=== PATIENT | female | born 1980 | race Caucasian/White ===

== ENCOUNTER 2016-08-02 13:50 | Emergency (ER) | payer OTHER ==
[~2016-08-02 13:50] MED LIST: ALBUTEROL SULF8.5 GM INH; ALDACTONE100 MG PO; CELEXA40 MG PO; CLARITIN10 M2 PO; CLINDAMYCIN HC300 MG PO; CYCLOBENZAPRINE10 MG PO; CYMBALTA20 MG PO; DICLOFENAC; DICLOFENAC SODI50 MG PO; GABAPENTIN300 MG PO; KEFLEX500 MG PO; LEVOFLOXACIN750 MG PO; METFORMIN HCL500 MG PO; NIACIN500 M1 PO; NORCO 5-325 TA1 EACH PO; NORCO 7.5-3251 EACH PO; OS CAL PO; PREVIFEM1 EACH PO; SPIRONOLACTONE50 MG PO; TRAMADOL HCL50 MG PO; TRAZODONE HCL50 MG PO; VITAMIN D1000 UNI1 PO; ZITHROMAX250 MG PO; [UNRECOGNIZED DRUG - OTHER] PO
--- OUTSIDE RECORDS SUMMARY | 2016-08-02 14:16 | XMS ---
Demographics + + + | Address | [address] | | | [address] | | | [place] [address] | + + + | Preferred Language | Unknown | + + + | Marital Status | Unknown | + + + | Latter-Day Affiliation | Unknown | + + + | Race | Unknown | + + + | Ethnic Group | Unknown | + + + Author + + + | Author | [facility] | + + + | Organization | [facility] | + + + | Address | [address] | | | [place] [address] | + + + | Phone | | + + + Care Team Providers + + + + | Care Scrap Breaker Name | Role | Phone | + + + + Unavailable | Unavailable | + + + + PROBLEMS +---------+ + + +--------+ + + | Type | Condition | ICD9-CM | JSO19-RA | Onset | Condition | SNOMED | | | | Code | Code | Dates | Status | Code | +---------+ + + +--------+ + + | Problem | Hirsutism | | L68.0 | | Active | 192637703 | +---------+ + + +--------+ + + | Problem | Hypertensi | | I10 | | Active | 90639083 | | | on | | | | | | +---------+ + + +--------+ + + | Problem | Asthma | | J45.909 | | Active | 533864826 | +---------+ + + +--------+ + + | Problem | Snoring | | R06.83 | | Active | 49636039 | +---------+ + + +--------+ + + | Problem | BMI | Z68.38 | | | Active | 2202731394 | | | 38.0-38.9, | | | | | [address] | | | adult | | | | | | +---------+ + + +--------+ + + | Problem | Tobacco | | Z72.0 | | Active | 01203715 | | | abuse | | | | | | +---------+ + + +--------+ + + | Problem | Tobacco | | Z71.6 | | Active | 423067465 | | | abuse | | | | | | | | counseling | | | | | | +---------+ + + +--------+ + + | Problem | Anxiety | F41.8 | | | Active | 747957025 | | | associated | | | | | | | | with | | | | | | | | depression | | | | | | +---------+ + + +--------+ + + | Problem | Carpal | G56.00 | | | Active | 40387673 | | | tunnel | | | | | | | | syndrome | | | | | | +---------+ + + +--------+ + + | Problem | Tobacco | 305.1 | | | Active | 29210490 | | | abuse | | | | | | | | disorder | | | | | | +---------+ + + +--------+ + + | Problem | Chronic | 724.4 | | | Active | 538657694 | | | radicular | | | | | | | | pain of | | | | | | | | lower back | | | | | | +---------+ + + +--------+ + + | Problem | Family | V18.19 | | | Active | 065828095 | | | history of | | | | | | | | thyroid | | | | | | | | problem | | | | | | +---------+ + + +--------+ + + | Problem | Insomnia | | G47.00 | | Active | 584779735 | +---------+ + + +--------+ + + | Problem | GERD | | K21.9 | | Active | 008929110 | | | (gastroeso | | | | | | | | phageal | | | | | | | | reflux | | | | | | | | disease) | | | | | | +---------+ + + +--------+ + + | Problem | Steatosis | 571.8 | | | Active | 804791710 | | | of liver | | | | | | +---------+ + + +--------+ + + | Problem | Hyperlipid | | E78.5 | | Active | 89714739 | | | emia | | | | | | +---------+ + + +--------+ + + | Problem | Obesity | | E66.01 | | Active | 902918777 | | | (BMI | | | | | | | | 35.0-39.9 | | | | | | | | without | | | | | | | | comorbidit | | | | | | | | y) | | | | | | +---------+ + + +--------+ + + | Problem | PCOS | E28.2 | | | Active | 91973918 | | | (polycysti | | | | | | | | c ovarian | | | | | | | | syndrome) | | | | | | +---------+ + + +--------+ + + ALLERGIES + + + + +--------+ | Substance | Reaction | Event Type | Date | Status | + + + + +--------+ | Penicillin | hives | Drug Allergy | Jul, | Active | + + + + +--------+ | Sulfa | nausea | Drug Allergy | Jul, | Active | + + + + +--------+ SOCIAL HISTORY No smoking Hx information available PLAN OF CARE + +---------+ | Activity | Details | + +---------+ +---+ | | +---+ + + + | Follow Up | prn Reason:null | + + + | Future/Pending Procedure | punch biopsy | + + + VITAL SIGNS + + + + | Height | 64 in | 2016-07-28 | + + + + | Weight | 222.0 lbs | 2016-07-28 | + + + + | BMI | 38.10 kg/m2 | 2016-07-28 | + + + + | Temperature | 97.3 degrees Fahrenheit | 2016-07-28 | + + + + | Heart Rate | 94 /min | 2016-07-28 | + + + + | Blood pressure systolic | 132 mm Hg | 2016-07-28 | + + + + | Blood pressure diastolic | 87 mm Hg | 2016-07-28 | + + + + MEDICATIONS + + + + + + + +--------+ | Medicati | Instruct | Dosage | Frequenc | Start | End Date | Duration | Status | | on | ions | | y | Date | | | | + + + + + + + +--------+ | Fish Oil | Orally | 1 | 24h | | | | Active | | | Once a | capsule | | | | | | | | day | with a | | | | | | | | | meal | | | | | | + + + + + + + +--------+ | Spironol | | TAKE ONE | | | | 30 | Active | | actone | | TABLET | | | | | | | 25 MG | | BY MOUTH | | | | | | | | | TWICE A | | | | | | | | | DAY | | | | | | + + + + + + + +--------+ | Diclofen | orally 1 | 1 tab(s) | | | 13 Dec, | 30 | Active | | ac | to 2 | | | | 2017 | day(s) | | | Sodium | times a | | | | | | | | 75 mg | day | | | | | | | + + + + + + + +--------+ | Singulai | Orally | 1 tablet | 24h | | | 30 | Active | | r 10 MG | Once a | in the | | | | | | | | day | evening | | | | | | + + + + + + + +--------+ | Albutero | | USE 1 | | | | 5 | Active | | l | | VIAL PER | | | | | | | Sulfate | | | | | | | | | (2.5 | | NEBULIZE | | | | | | | MG/3ML) | | R EVERY | | | | | | | 0.083% | | 4 HOURS | | | | | | | | | | | | | | | | | | NEEDED | | | | | | + + + + + + + +--------+ | Flexeril | Orally | 1 tablet | | | | 30 | Active | | 10 mg | qhs | | | | | | | + + + + + + + +--------+ | Cymbalta | Orally | 1 | 24h | | | 30 | Active | | 60 MG | Once a | capsule | | | | | | | | day | | | | | | | + + + + + + + +--------+ | Tramadol | Orally | 1 tablet | 6h | | | | Active | | HCl 50 | every 6 | as | | | | | | | MG | hrs | needed | | | | | | + + + + + + + +--------+ | Ventolin | Inhalati | 2 puffs | | | | 30 | Active | | HFA 108 | on every | as | | | | | | | (90 | 4 hrs | needed | | | | | | | Base) | prn | | | | | | | | MCG/ACT | SOB/Whee | | | | | | | | | ze/Cough | | | | | | | + + + + + + + +--------+ | Metformi | Orally | 1 tab(s) | 12h | | | 30 days | Active | | n HCl | bid | | | | | | | | 500 mg | | | | | | | | + + + + + + + +--------+ | Xanax | Orally | 1 tablet | | 16 Sep, | | 15 | Active | | 0.25 MG | BID PRN | | | 2015 | | day(s) | | | | anxiety | | | | | | | | | attack | | | | | | | + + + + + + + +--------+ | Niacin | Orally | 1 tablet | 24h | | | | Active | | | Once a | | | | | | | | | day | | | | | | | + + + + + + + +--------+ | Trazodon | | TAKE ONE | | | | 30 | Active | | e HCl | | CAPSULE | | | | | | | 100 MG | | EVERY | | | | | | | | | BEDTIME | | | | | | | | | FOR | | | | | | | | | INSOMNIA | | | | | | + + + + + + + +--------+ | Acyclovi | Orally 5 | 2 | | 17 Nov, | | 7 days | Active | | r 400 MG | times a | tablets | | 2013 | | | | | | day | | | | | | | + + + + + + + +--------+ | Gabapent | Orally | 1 cap(s) | | June, | | 30 | Active | | in 300 | qHS | | | 2016 | | | | | mg | | | | | | | | + + + + + + + +--------+ RESULTS No Results PROCEDURES + + + + + | Procedure | Date Ordered | Related Diagnosis | Body Site | + + + + + | BIOPSY OF SKIN | July 28, 2016 | | | | LESION; Single | | | | + + + + + | Est Level II | July 28, 2016 | | | | Limited | | | | + + + + + | DOC MEDS VERIFIED | July 28, 2016 | | | | W/PT OR RE | | | | + + + + + | [facility] MED/CURRENT | July 28, 2016 | | | | MED MERGE | | | | + + + + + IMMUNIZATIONS No Known Immunizations"
--- NOTE | 2016-08-02 15:57 | EKG ---
[facility] [address] [place], [place] [address] Signed Normal sinus rhythm Normal ECG When compared with ECG of 24-MAR-2016 11:13, No significant change was found Confirmed by CLIVE ERAZO MD ([id number]) on 08/02/2016 3:57:08 PM Electronically Signed By: CLIVE ERAZO MD 08/02/16 1557 PATIENT NAME: ESTHER WEINSTEIN Electrocardiogram DATE OF : 76 PHYSICIAN: CLIVE ERAZO MD REPORT #: [id number] REPORT IS CONFIDENTIAL AND NOT TO BE RELEASED WITHOUT AUTHORIZATION
== END 2016-08-02 15:58 | disposition home or self-care (01) ==
LOC: ED 13:50
DX: I49.3 Ventricular premature depolarization (principal); F17.200 Nicotine dependence, unspecified, uncomplicated; Z90.710 Acquired absence of both cervix and uterus; Z90.89 Acquired absence of other organs; Z88.0 Allergy status to penicillin; Z88.2 Allergy status to sulfonamides; Z79.899 Other long term (current) drug therapy
CPT/HCPCS: 80053; 83735; 84443; 84484; 85025; 93005; 93010; 99284

== ENCOUNTER 2016-11-14 09:00 | Day surgery (SDC) | payer OTHER ==
[~2016-11-14] VITALS: Ht 162.6 cm; Wt 98.0 kg
[2016-11-14] MEDS ORDERED: KEFLEX500 MG PO (09:31)
[2016-11-14] MEDS ORDERED: SINGULAIR10 MG PO (09:31)
--- NOTE | 2016-11-14 11:46 | NUR ---
11/14/16 1146 Won Purdy PT RATES HER PAIN AT A 7. MEDICATED BY REFRIGERATION ENGINE OPERATOR.
--- NOTE | 2016-11-14 12:40 | NUR ---
ICED WATER AND PUDDING GIVEN. CALL LIGHT W/IN REACH.
--- NOTE | 2016-11-14 12:49 | NUR ---
PT EATS PUDDING AND TOLERATES THAT WELL.
[2016-11-14] MEDS ORDERED: OXYCODONE HCL5 MG PO (13:25)
--- NOTE | 2016-11-14 13:29 | NUR ---
PT UP TO BR W/RN STANDBY. PT AMBULATES WELL AND DENIES DIZZINESS. PT REPORTS SUCCESSFUL VOID. PT REQ DC HOME. DC INSTRUCTIONS GIVEN IN PRESENCE OF SPOUSE AND BOTH VERBALIZE UNDERSTANDING.
--- NOTE | 2016-12-05 15:10 | OR ---
[facility] [address] [place], [place] [address] Signed DATE OF PROCEDURE: 11/14/16 PREOPERATIVE DIAGNOSES: Chronic pansinusitis with a septal deformity. POSTOPERATIVE DIAGNOSES: Chronic pansinusitis with a septal deformity. PROCEDURE PERFORMED: Bilateral pansinusotomies with a septoplasty. SURGEON: Aguila Oleary MD. ANESTHESIA: General LMA, (Jennifer Crouch CRNA). PREOPERATIVE HISTORY Karla is a 36-year-old lady with several months of sinus infections. She has an abnormal sinus CT despite several courses of antibiotics. She has a significant septal deformity obstructive on the right side. She is taken to the operating room for the above-mentioned procedures. OPERATIVE PROCEDURE AND FINDINGS After informed consent, the patient was taken to the operating room, placed in supine position where general LMA anesthesia was induced. The patient and procedure were verified. The patient received preoperative intranasal oxymetazoline and intravenous Ancef. The preop CT was viewed throughout, headlight nasal speculum exam of the nasal cavity showed a significant septal deformity on the right side, a large spur extending posteriorly, which was obstructive and also obscuring excess to the middle meatus. Septal mucosa was injected with 1% Lidocaine with Epi. The septal mucosa was elevated off the deviated septal bone and cartilage, which was excised with Jason. Septum was medialized and the airway improved and access to middle meatus was available after this. The left side was approached, middle turbinate was medialized. The ethmoid bulla was taken down with the Jason. There was edematous mucosa. All the anterior and posterior ethmoid air cells were then opened. The sphenoid sinus was opened and sphenoid sinusotomy widened. There was some hypertrophic mucosa present in the sphenoid sinus. All involved sinuses were opened as per CT, middle meatal antrostomy was made with a curving curette and widened with the Jason. Bleeding was minimal. Packing was placed. coated with Neosporin in the middle meatus and the trimmed Merocel pack in the nasal cavity. The same procedure on the right side. Actually a bit more hypertrophic mucosa polypoid material in the ethmoid sinuses on the right side. The sinuses were open as per the left side. Packing was placed. The packing was tied anteriorly over a pad. Hemostasis was verified. The pharynx was suctioned clear blood and secretions. The patient was then awakened, extubated, transported to recovery room in good condition. No complications. Electronically Signed By: AGUILA OLEARY MD 12/05/16 1510 PATIENT NAME: KARLA WEINSTEIN OPERATIVE REPORT DATE OF : 76 PHYSICIAN: AGUILA OLEARY MD REPORT #: [id number] REPORT IS CONFIDENTIAL AND NOT TO BE RELEASED WITHOUT AUTHORIZATION [address] [address] Signed BLOOD LOSS: Around 200 mL. SPECIMEN TO PATHOLOGY Packing 2 pieces of Merocel each nostril. No drains. No complications. Aguila Oleary MD GC/Lyle /[id number] cc: NILESH Vazquez Electronically Signed By: AGUILA OLEARY MD 12/05/16 1510 PATIENT NAME: WEINSTEINKARLA OPERATIVE REPORT DATE OF : 76 PHYSICIAN: AGUILA OLEARY MD REPORT #: [id number] REPORT IS CONFIDENTIAL AND NOT TO BE RELEASED WITHOUT AUTHORIZATION
== END 2016-11-14 13:43 | disposition home or self-care (01) ==
LOC: DS 09:00
PROVIDERS: Otolaryngology
PROC: 099Q4ZZ Drainage of Right Maxillary Sinus, Percutaneous Endoscopic Approach (ICD-10-PCS; 2016-11-14)
PROC: 099U4ZZ Drainage of Right Ethmoid Sinus, Percutaneous Endoscopic Approach (ICD-10-PCS; 2016-11-14)
PROC: 099V4ZZ Drainage of Left Ethmoid Sinus, Percutaneous Endoscopic Approach (ICD-10-PCS; 2016-11-14)
PROC: 099X4ZZ Drainage of Left Sphenoid Sinus, Percutaneous Endoscopic Approach (ICD-10-PCS; 2016-11-14)
PROC: 099W4ZZ Drainage of Right Sphenoid Sinus, Percutaneous Endoscopic Approach (ICD-10-PCS; 2016-11-14)
PROC: 09SM0ZZ Reposition Nasal Septum, Open Approach (ICD-10-PCS; 2016-11-14)
PROC: 099R4ZZ Drainage of Left Maxillary Sinus, Percutaneous Endoscopic Approach (ICD-10-PCS; principal; 2016-11-14 11:00)
DX: J32.4 Chronic pansinusitis (principal); J34.2 Deviated nasal septum; E78.00 Pure hypercholesterolemia, unspecified; F32.9 Major depressive disorder, single episode, unspecified; J45.909 Unspecified asthma, uncomplicated; E28.2 Polycystic ovarian syndrome; G43.909 Migraine, unspecified, not intractable, without status migrainosus; Z88.0 Allergy status to penicillin; Z88.2 Allergy status to sulfonamides; Z79.01 Long term (current) use of anticoagulants; Z79.899 Other long term (current) drug therapy; Z90.710 Acquired absence of both cervix and uterus; Z98.890 Other specified postprocedural states
CPT/HCPCS: 00160; J0690; J1100; J2250; J2405; J2704; J2765; J3010; J7120

== ENCOUNTER 2019-04-28 20:49 | Emergency (ER) | payer OTHER ==
[~2019-04-28] VITALS: Ht 162.6 cm; Wt 92.1 kg
[~2019-04-28 20:49] MED LIST changes: +ACYCLOVIR400 MG PO; +FISH OIL 1,0001 EAC2 NG; +GABAPENTIN100 MG; +OXYCODONE HCL5 MG PO; +SINGULAIR10 MG PO; +SPACE CHAMBER1 EACH; +TRIAMCINOLONE A15 GM TOP; +VENTOLIN HFA18 GM INH; +XANAX0.25 MG PO
--- OUTSIDE RECORDS SUMMARY | 2019-04-28 20:52 | XMS ---
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 Anastasiya has no Care Guidelines for this patient. Grace VISIT COUNT (12 MO.) 1 MELSISA Scott TOTAL 1 NOTE: Visits indicate total known visits. ED/UCC VISIT TRACKING (12 MO.) 04/28/2019 20:50 MELISSA Beltrán [place] TYPE: Emergency COMPLAINT: - COUGH/FEVER INPATIENT VISIT TRACKING (12 MO.) No inpatient visits to display in this time frame [id number]
== END 2019-04-28 21:25 | disposition home or self-care (01) ==
LOC: ED 20:49
DX: R05 Cough (principal)

== ENCOUNTER 2024-04-03 10:20 | Emergency (ER) | payer OTHER ==
[~2024-04-03] VITALS: Ht 162.6 cm; Wt 87.1 kg
[2024-04-03 10:41] LABS: BILIRUBIN, URINE NEGATIVE (negative); BLOOD/HGB, URINE NEGATIVE (Negative); KETONE, URINE NEGATIVE (Negative); LEUK ESTERASE, URINE NEGATIVE (negative); NITRITE, URINE NEGATIVE (negative)
[2024-04-03] MEDS ORDERED: ondansetron HCL 4 MG/2 ML VIAL IV PRN ×2 (10:45→12:30)
[2024-04-03] MEDS ORDERED: HYDROmorphone HCL 1 MG/ML SYR IV ONE (10:45)
[2024-04-03] MEDS ORDERED: SODIUM CHLORIDE 0.9% 1,000 ML IV ONE (10:45)
[2024-04-03 10:53] LABS: BASOPHILS 0.7 % (0-2); EOSINOPHILS 2.5 % (0-6); HEMATOCRIT 40.9 % (35.0-50.0); HEMOGLOBIN 14.2 g/dL (12.0-18.0); LYMPHOCYTES 32.6 % (24-44); MCH 31.5 (27-36); MCHC 34.8 g/dl (30-36); MCV 90.6 fl (81-99); NEUTROPHILS 56.2 % (39-80); PLATELET COUNT 311 K/uL (140-440); RBC 4.51 M/ul (4.3-5.7); RDW 12.6 (10.5-15.0)
[2024-04-03 11:29] LABS: ALBUMIN 3.9 g/dL (3.4-5.0); ALBUMIN/GLOBULIN RATIO 1.18 (1.1-2.4); ANION GAP 9.6 (7-21); BILIRUBIN, TOTAL 0.4 mg/dL (0.2-1.0); BUN/CREATININE RATIO 14.92 (6.0-28.6); CALCIUM 9.5 mg/dL (8.5-10.1); CREATININE, SERUM 0.67 mg/dL (0.55-1.02); POTASSIUM 3.6 mmol/L (3.5-5.1); PROTEIN, TOTAL 7.2 g/dL (6.4-8.2)
[2024-04-03] MEDS ORDERED: ONDANSETRON HCL8 MG PO (12:35)
[2024-04-03 12:49] VITALS: BP 125/91
--- NOTE | 2024-04-04 12:58 | EKG ---
[facility] [address] [place], [place] [address] Signed Normal sinus rhythm Normal ECG Confirmed by Kelle Ryan DO ([id number]) on 04/04/2024 12:58:40 PM Electronically Signed By: KELLE RYAN DO 04/04/24 1258 PATIENT NAME: ESTHER PANCHAL Electrocardiogram DATE OF : 76 PHYSICIAN: KELLE RYAN DO REPORT #: [id number] REPORT IS CONFIDENTIAL AND NOT TO BE RELEASED WITHOUT AUTHORIZATION
== END 2024-04-03 12:49 | disposition home or self-care (01) ==
LOC: ED 10:20
PROVIDERS: Emergency Medicine
DX: K85.90 Acute pancreatitis without necrosis or infection, unspecified (principal); E66.9 Obesity, unspecified; Z87.891 Personal history of nicotine dependence; Z88.0 Allergy status to penicillin; Z88.2 Allergy status to sulfonamides; Z88.5 Allergy status to narcotic agent; Z79.899 Other long term (current) drug therapy; Z79.84 Long term (current) use of oral hypoglycemic drugs
CPT/HCPCS: 36415; 74177; 80053; 81003; 83690; 84484; 85025; 93005; 93010; 96375; 96376; 99284-25; J1171; J2405; J7030; Q9967